=== PATIENT | male | born 1955 | race Caucasian/White ===

== ENCOUNTER 2021-01-20 18:43 | Emergency (ER) | payer MEDICARE ==
[2021-01-20 19:49] LABS: RED BLOOD COUNT 3.98 M/UL (4.20-5.50)
[2021-01-20 20:45] LABS: BUN/CREATININE RATIO 8 (0-10)
[2021-01-25 17:15] LABS: WHITE BLOOD COUNT 49.9 K/UL (4.5-11.0)
== END 2021-01-20 22:40 | disposition home or self-care (01) ==
LOC: ER1 18:43
PROVIDERS: Physician Assistant
DX: R07.9 Chest pain, unspecified (principal); E11.9 Type 2 diabetes mellitus without complications; Z86.79 Personal history of other diseases of the circulatory system
CPT/HCPCS: 75635; 80053; 81001; 82550; 82553; 83874; 84484; 85007; 85027; 93005; 99285; Q9967